=== PATIENT | female | born 1960 | race Caucasian/White ===

== ENCOUNTER 2017-02-13 17:29 | Emergency (ER) | payer MEDICAID ==
--- NOTE | 2017-02-13 17:51 | ED PDOC ---
Arrival/HPI - General Time Seen by Provider: 02/13/17 17:49 Historian: Patient - History of Present Illness Narrative History of Present Illness (Text): 02/13/17 17:50 56 year old female with a past medical history that includes depression, presents to the Emergency Department c/o b/l posterior neck pain, that radiates to posterior head x 2 weeks. Patient denies trauma, dizziness, dysarthria, dysphagia, diplopia, weakness, paresthesias, recent illness, sob, cp, or abnormal gait. Time/Duration: Other (see hpi) Context: Home Past Medical History - Provider Review Nursing Documentation Reviewed: Yes - Infectious Disease Hx of Infectious Diseases: None - Tetanus Immunization Tetanus Immunization: Unknown - Cardiac Other/Comment: Heart problems - Endocrine/Metabolic Hx Systemic Lupus Erythematosus: Yes - Psychiatric Hx Depression: Yes Hx Substance Use: No - Anesthesia Hx Anesthesia: No Hx Anesthesia Reactions: No Hx Malignant Hyperthermia: No Family/Social History - Physician Review Nursing Documentation Reviewed: Yes Family/Social History: Other (noncontributory) Smoking Status: Never Smoked Hx Alcohol Use: Yes Hx Substance Use: No Allergies/Home Meds Allergies/Adverse Reactions: Allergies No Known Allergies Allergy (Verified 02/13/17 17:53) Review of Systems - Review of Systems Constitutional: Normal. absent: Fatigue, Weight Change, Fevers Eyes: Normal. absent: Vision Changes, Photophobia ENT: Normal Respiratory: Normal. absent: SOB, Cough, Sputum Cardiovascular: Normal. absent: Chest Pain, Palpitations Gastrointestinal: Normal. absent: Abdominal Pain, Nausea, Vomiting Genitourinary Female: Normal. absent: Dysuria, Hematuria Musculoskeletal: Neck Pain. absent: Arthralgias, Back Pain, Joint Swelling, Myalgias Skin: Normal Neurological: Headache. absent: Dizziness, Focal Weakness, Gait Changes, Speech Changes, Facial Droop, Disequilibrium, Seizure Endocrine: Normal Hemo/Lymphatic: Normal Psychiatric: Normal. absent: Anxiety, Depression, Suicidal Ideation Physical Exam Vital Signs Temp Pulse Resp BP Pulse Ox 02/13/17 17:53 97.8 F 88 19 98 02/13/17 17:52 97.8 F 88 18 127/64 98 Temperature: Afebrile Blood Pressure: Normal Pulse: Regular Respiratory Rate: Normal Appearance: Positive for: Well-Appearing, Non-Toxic, Comfortable Pain Distress: None Mental Status: Positive for: Alert and Oriented X 3 - Systems Exam Head: Present: Atraumatic, Normocephalic Pupils: Present: PERRL Extroacular Muscles: Present: EOMI. No: Entrapment Conjunctiva: Present: Normal Ears: Present: Normal, NORMAL TM, Normal Canal. No: Erythema, TM Bulging, Fluid Mouth: Present: Moist Mucous Membranes, Normal Lips, Normal Tounge. No: Drooling Pharnyx: Present: Normal. No: ERYTHEMA, EXUDATE, TONSILS ENLARGED, Peritonsilar Swelling, Uvular Deviation Nose (External): Present: Atraumatic Nose (Internal): Present: Normal Inspection Neck: Present: Normal Range of Motion, Paraspinal Tenderness (mild b/l paravertebral tenderness. No vertebral point tenderness. No vertebral step off ), Trachea Midline. No: Meningeal Signs, MIDLINE TENDERNESS, Lymphadenopathy, Bruit Respiratory/Chest: Present: Clear to Auscultation, Good Air Exchange, Respiratory Distress, Accessory Muscle Use. No: Wheezes, Decreased Breath Sounds, Rales, Retracting, Rhonchi Cardiovascular: Present: Regular Rate and Rhythm, Murmurs (patient admits [facility] heart valve regurgitation), Normal S1, S2 Abdomen: No: Tenderness Back: Present: Normal Inspection. No: CVA Tenderness Upper Extremity: Present: Normal Inspection, Normal ROM Lower Extremity: Present: Normal Inspection, Normal ROM Neurological: Present: GCS=15, CN II-XII Intact, Speech Normal, Motor Func Grossly Intact, Normal Sensory Function, Normal Cerebellar Funct, Gait Normal, Memory Normal, Other (Patient has a normal gait without assistance. No neuro focal deficits.) Skin: Present: Warm, Dry, Normal Color. No: Rashes Psychiatric: Present: Alert, Oriented x 3, Normal Insight, Normal Concentration Medical Decision Making ED Course and Treatment: 02/13/17 18:38 Re-evaluation. Patient feels better. Discussed results and plan with patient who expresses understanding. All questions answered and there is agreement with the plan to discharge home with instructions. Patient stable for discharge. Return if symptoms persist or worsen. Re-evaluation Time: 18:38 Reassessment Condition: Re-examined, Improved - Medication Orders Current Medication Orders: Discontinued Medications Diazepam (Valium) 5 mg PO ONCE ONE PRN Reason: Protocol Stop: 02/13/17 18:06 Last Admin: 02/13/17 18:17 Dose: 5 mg Ketorolac Tromethamine (Toradol) 30 mg IM STAT STA Stop: 02/13/17 18:06 Last Admin: 02/13/17 18:17 Dose: 30 mg MAR Pain Assessment Document 02/13/17 18:17 [email or web address] (Rec: 02/13/17 18:17 [email or web address] [id number]) Pain Reassessment Is this a pain reassessment? No Sleep Is patient sleeping during reassessment? No Presence of Pain Presence of Pain Yes Pain Scale Used Pain Scale Used Numeric Location Pain Location Body Services Program Manager Description Description Constant Pain Behavior Facial Grimacing Aggravating Factors Changing Position Alleviating Factors/Management Position Change Techniques Alleviating Factors Medication IM Administration Charges Document 02/13/17 18:17 [email or web address] (Rec: 02/13/17 18:17 [email or web address] [id number]) Injection Site MAR Injection Site Right Deltoid Charges for Administration # of IM Administrations 1 Disposition/Present on Arrival - Present on Arrival Any Indicators Present on Arrival: No History of DVT/PE: No History of Uncontrolled Diabetes: No Urinary Catheter: No History Surgical Site Infection Following: None - Disposition Have Diagnosis and Disposition been Completed?: Yes Diagnosis: Neck pain Disposition: HOME/ ROUTINE Disposition Time: 18:39 Patient Plan: Discharge Condition: GOOD Discharge Instructions (ExitCare): Cervical Sprain (ED), Tension Headache (ED) Additional Instructions: Call private doctor for follow up visit in 1-2 days. Take medication as instructed with food. Return to emergency if symptoms worsen, unstable gait, dizziness, severe headache, nausea, vomiting, fever. Prescriptions: diaZEpam [Valium] 5 mg PO DAILY #5 tab Naproxen 500 mg PO BID #14 tab Referrals: [facility] [Outside] - Follow up with primary [facility] [Outside] - Follow up with primary
[2017-02-13 17:53] VITALS: BP 127/64; TEMP 97.8; BMI 26.6
[2017-02-13 17:56] VITALS: RESP 19
[2017-02-13 18:54] VITALS: PULSE 90; O2SAT 99
== END 2017-02-13 18:51 | disposition home or self-care (01) ==
LOC: ED 17:29
DX: M54.2 Cervicalgia (principal)
CPT/HCPCS: 96372; 99285; J1885